=== PATIENT | male | born 1960 | race American Indian/Alaskan Native ===

== ENCOUNTER 2021-09-14 10:33 | Outpatient (CLI) | payer MEDICARE ==
--- NOTE | 2021-09-14 12:31 | Fluoroscopy Report ---
BARIUM SWALLOW Indication: DYSPHAGIA. Technique: Single and double contrast barium technique utilized to evaluate the esophagus. FINDINGS: To begin the exam, swallowing was evaluated in the lateral position under direct fluorosco py. Swallowing was normal. No mucosal irregularity, mass, mass effect, or critical stenosis. There were no abnormal tertiary c ontractions as seen with dysmotility. No hiatal hernia or gastroesophageal reflux was witnessed durin g this exam. IMPRESSION: Unremarkable exam. Fluoroscopic time: 1.8 minutes Number of fluoroscopic images: 42 Signer Name: Lewis Jeong Jr, MD Signed: 09/14/2021 12:26 PM Workstation Name: [id number]
== END 2021-09-14 10:34 | disposition home or self-care (01) ==
LOC: FLUORO 10:33
DX: R13.10 Dysphagia, unspecified (principal)
CPT/HCPCS: 74220